=== PATIENT | female | born 1935 | race Caucasian/White ===

== ENCOUNTER → 2018-03-02 | Outpatient (CLI) | payer MEDICARE, BC | LOC: MAMMO 09:45 | DX: Z12.31 Encounter for screening mammogram for malignant neoplasm of breast (principal) | CPT/HCPCS: 77067 ==

== ENCOUNTER → 2018-05-23 | Outpatient (CLI) | payer MEDICARE, BC ==
--- NOTE | 2018-05-23 11:17 | Diagnostic Imaging Report ---
EXAM: Bone mineral density study 05/23/2018 10:22 AM INDICATION: \S\OSTEOPOROSIS SCREENING COMPARISON: None FINDINGS: Evaluation of the left hip and lumbar spine was performed. The study is technically adequate. The patient's fracture risk is compared to an age-matched control. Left femoral neck bone mineral density: 0.858 g/cm2, T-score is 0.1, Z-score is 2.6. Left hip total bone mineral density: 0.878 g/cm2, T-score is -0.5, Z-score is 1.8. Lumbar spine total bone mineral density: 1.184 gm/cm2, T-score is 1.2, Z-score is 4.1. IMPRESSION: Bone mineralization by WHO Classification is normal, the fracture risk is not increased. Signed by: Dr. Leobardo Vasquez MD on 05/23/2018 11:14 AM
== END ==
LOC: DX 10:13
DX: Z13.820 Encounter for screening for osteoporosis (principal); M89.9 Disorder of bone, unspecified
CPT/HCPCS: 77080